=== PATIENT | female | born 1985 | race Caucasian/White ===

== ENCOUNTER 2019-05-26 08:20 | Emergency (ER) | payer MEDICAID ==
--- NOTE | 2019-05-26 09:26 | EDM.PDOC ---
ED HPI GENERAL MEDICAL PROBLEM - General Chief Complaint: General Stated Complaint: INFECTED TOOTH Time Seen by Provider: 05/26/19 09:00 - History of Present Illness INITIAL COMMENTS - FREE TEXT/NARRATIVE: Leah presents to the emergency department today for ongoing issues with dental discomfort. About 1 month ago, she broke a tooth of her left upper maxillary area, I believe a canine tooth. She has been okay up until about 3 days ago when the pain ensued. She called her doctor and her dentist and was advised to come here to the ER. She adamantly does not want any opioids. She has a fear of needles. She has tolerated antibiotics well in the past and has had no issues with prior vaginal yeast infections. She denies any significant headache, trismus, jaw pain, as well as any adenopathy. She otherwise feels well. She has had no fevers. Left Tooth/Teeth Pain Score (Numeric/FACES): 6 - Related Data Allergies Allergy/AdvReac Type Severity Reaction Status Date / Time No Known Allergies Allergy Verified 01/06/16 09:14 Home Meds: Home Meds NK [No Known Home Meds] 01/06/16 [History] Past Medical History - Past Health History Medical/Surgical History: Denies Medical/Surgical History [place] History: Reports: - Infectious Disease History Infectious Disease History: Reports: Chicken Pox Social & Family History - Family History Family Medical History: Noncontributory - Tobacco Use Smoking Status *Q: Never Smoker Second Hand Smoke Exposure: No - Caffeine Use Caffeine Use: Reports: Coffee, Soda - Recreational Drug Use Recreational Drug Use: No ED ROS GENERAL - Review of Systems Review Of Systems: See Below Free Text/Narrative/Comment: As per HPI ED EXAM, GENERAL - Physical Exam Exam: See Below Exam Limited By: No Limitations General Appearance: Alert, WD/WN, No Apparent Distress Eye Exam: Bilateral Eye: EOMI, Normal Inspection Ears: Normal External Exam, Hearing Grossly Normal Nose: Normal Inspection Throat/Mouth: Normal Inspection, Normal Lips, Other (Affected tooth appears free of any associated abscess or pointing) Head: Atraumatic Neck: Normal Inspection, Supple. No: Lymphadenopathy (R), Lymphadenopathy (L) Respiratory/Chest: No Respiratory Distress Extremities: Normal Inspection Neurological: Normal Cognition, Normal Gait Psychiatric: Normal Affect, Normal Mood Course - Vital Signs Last Recorded V/S: Last Vital Signs Temp 97.7 F 04/14/20 08:23 Pulse 66 05/26/19 08:23 Resp 12 05/26/19 08:23 BP 115/65 05/26/19 08:23 Pulse Ox 100 05/26/19 08:23 Departure - Departure Time of Disposition: 09:10 Disposition: DC/Tfer to SNF 03 Clinical Impression: Pain, dental - Discharge Information Instructions: Amoxicillin capsules or tablets, Tooth Injuries, [id number], Ketorolac tablets Referrals: PCP,None [Primary Care Provider] - Forms: ED Department Discharge Additional Instructions: Patient discharged home with instructions to take antibiotics and pain medications as prescribed. Patient educated to take the full dose of antibiotics even if she starts feeling better. Patient to follow up with dentist as soon as possible. Patient educated that Tylenol can be taken with Toradol, but Ibuprofen and Aleve cannot. Sepsis Event Note - Evaluation Sepsis Screening Result: No Definite Risk - Focused Exam Vital Signs: Vital Signs Temp Pulse Resp BP Pulse Ox 05/26/19 08:23 97.7 F 66 12 115/65 100 Date Exam was Performed: 05/26/19 Time Exam was Performed: :20 - Assessment/Plan Plan: Leah agrees to get into see her dentist as soon as possible. Decided together to cover her with amoxicillin 500 mg p.o. 3 times daily x7 days, Along with oral ketorolac 10 mg p.o. 3 times daily as needed. She will return with any persistent, worsening or new concerns.
== END 2019-05-26 09:15 ==
LOC: LB.ED 08:20
DX: K08.89 Other specified disorders of teeth and supporting structures (principal)
CPT/HCPCS: 99282; 99283

== ENCOUNTER 2020-01-01 13:24 | Emergency (ER) | payer MEDICAID ==
--- NOTE | 2020-01-01 14:01 | EDM.PDOC ---
ED HPI GENERAL MEDICAL PROBLEM - General Chief Complaint: General Stated Complaint: TOOTH PAIN Time Seen by Provider: 01/01/20 13:40 Source of Information: Reports: Patient History Limitations: Reports: No Limitations - History of Present Illness INITIAL COMMENTS - FREE TEXT/NARRATIVE: pain to right upper premolar region, pt states today is day 3 and pain has been getting worse. dentist appointment [id number]. evaluated for this in May and placed on abx. pt denies facial swelling, fever, drainage. pain radiates to right face to right ear region. Onset: Gradual Onset Date: 12/30/19 Location: Reports: Other (right upper premolar) Severity: Moderate Improves with: Reports: Cold Therapy Worsens with: Reports: Eating Associated Symptoms: Reports: Other (pain radiates to right face and right ear. ) Treatments EVENT PROMOTER: Reports: Acetaminophen, NSAIDS Right Oral/Mouth Pain Score (Numeric/FACES): 7 - Related Data Allergies Allergy/AdvReac Type Severity Reaction Status Date / Time No Known Allergies Allergy Verified 01/06/16 09:14 Home Meds: Home Meds Amoxicillin/Potassium Clav [Amox Tr-K Clv 875-125 mg Tab] 1 each PO BID 7 Days #14 tablet 01/01/20 [Rx] Past Medical History - Past Health History Medical/Surgical History: Denies Medical/Surgical History DORM[employer] MAID History: Reports: - Infectious Disease History Infectious Disease History: Reports: Chicken Pox Social & Family History - Family History Family Medical History: No Pertinent Family History - Caffeine Use Caffeine Use: Reports: Coffee, Soda ED ROS GENERAL - Review of Systems Review Of Systems: Comprehensive ROS is negative, except as noted in HPI. ED EXAM, GENERAL - Physical Exam Exam: See Below Exam Limited By: No Limitations General Appearance: Alert, WD/WN, No Apparent Distress Eye Exam: Bilateral Eye: Abnormal EOM, PERRL Ears: Normal External Exam, Normal Canal, Hearing Grossly Normal, Normal TMs Nose: Normal Inspection, Normal Mucosa Throat/Mouth: Normal Lips, Normal Oropharynx, Normal Voice, No Airway Compromise, Inflammation (right upper gumline by palpation, this area also TTP. right upper premolar has significant dental daria.) Respiratory/Chest: No Respiratory Distress, No Accessory Muscle Use Neurological: Alert, Oriented, Normal Cognition, Normal Gait Psychiatric: Normal Affect, Normal Mood Skin Exam: Warm, Dry, Intact Course - Vital Signs Last Recorded V/S: Last Vital Signs Temp 98.1 F 01/01/20 13:35 Pulse 78 01/01/20 13:35 Resp 18 01/01/20 13:35 BP 126/67 01/01/20 13:35 Pulse Ox 97 01/01/20 13:35 Departure - Departure Time of Disposition: 14:04 Disposition: Home, Self-Care 01 Condition: Good Clinical Impression: Pain, dental, Infected dental caries - Discharge Information *PRESCRIPTION DRUG MONITORING PROGRAM REVIEWED*: Not Applicable *COPY OF PRESCRIPTION DRUG MONITORING REPORT IN PATIENT JENNIFER: Not Applicable Prescriptions: Amoxicillin/Potassium Clav [Amox Tr-K Clv 875-125 mg Tab] 1 each PO BID 7 Days #14 tablet Instructions: Amoxicillin capsules or tablets Referrals: PCP,None [Primary Care Provider] - Forms: ED Department Discharge Additional Instructions: Discharge home Amoxicillin 875mg by mouth 1 tablet 2 times a day for 7 days. Tylenol 1000mg 4 times a day for pain. Aleve 440mg by mouth 2 times a day for pain. Benadryl liquid, take a little and hold on tooth for a minute. This will help with some of the pain. Follow up with your dentist as soon as possible. Sepsis Event Note (ED) - Evaluation Sepsis Screening Result: No Definite Risk - Focused Exam Vital Signs: Vital Signs Temp Pulse Resp BP Pulse Ox 01/01/20 13:35 98.1 F 78 18 126/67 97 - Problem List & Annotations (1) Pain, dental SNOMED Code(s): 34722081 Code(s): K08.89 - OTHER SPECIFIED DISORDERS OF TEETH AND SUPPORTING STRUCTURES Status: Acute Current Visit: Yes (2) Infected dental caries SNOMED Code(s): 97683403 Code(s): K02.9 - DENTAL CARIES, UNSPECIFIED; K04.7 - PERIAPICAL ABSCESS WITHOUT SINUS Status: Acute Current Visit: Yes - Problem List Review Problem List Initiated/Reviewed/Updated: Yes - Assessment/Plan Plan: assessment: dental pain; infected dential daria plan: tylenol and NSAIDs of choice augmentin 875mg BID x7days follow up with dentist as scheduled, sooner if able.
== END 2020-01-01 14:00 | disposition home or self-care (01) ==
LOC: LB.ED 13:24
DX: K04.7 Periapical abscess without sinus (principal); K02.9 Dental caries, unspecified
CPT/HCPCS: 99282

== ENCOUNTER 2022-03-02 08:53 | Emergency (ER) | payer MEDICAID | END 2022-03-02 09:11 | disposition home or self-care (01) | LOC: LB.ED 08:53 | DX: K08.89 Other specified disorders of teeth and supporting structures (principal) | CPT/HCPCS: 99282 ==